=== PATIENT | female | born 1980 | race Caucasian/White ===

== ENCOUNTER 2017-01-07 16:50 | Emergency (ER) | payer SELFPAY ==
[~2017-01-07] VITALS: Ht 160 cm; Wt 68.0 kg
[~2017-01-07 16:50] MED LIST: 'PARAFON FORTE500 M1 PO; ALBUTEROL2.5 MG/0.5 INH; AMOXICILLIN500 MG PO; ANAPROX DS550 MG PO; BACTRIM DS 8001 TA1 PO; BENADRYL25 M1 PO; BLEPH-10 15 ML15 ML OP; CIPRO500 MG PO; CLARITIN-D 10 M1 T21 PO; CLINDAMYCIN HC300 MG PO; FIORICET 50-301 EACH PO; FLONASE 0.05% 121 EA NAS; HYDROCODONE BIT1 T11 PO; KEFLEX500 MG PO; LEVOFLOXACIN500 MG PO; MEDROL DOSEPAK4 MG PO; Motrin,Rufen800 MG PO; NAPROSYN500 MG PO; PENICILLIN VK500 MG PO; PERCOCET 325 MG1 TA7 PO; PREDNICOT10 MG PO; SEPTRA DS 800 M1 TAB PO; TOBRADEX 0.1%-0.5 ML OPH; TORADOL10 MG PO; TRAMADOL HCL50 MG PO; TRIMOX500 MG PO; TYLENOL500 MG PO; VICODIN 5/500 505 MG PO; VICODIN 500 MG-1 TAB PO; ZITHROMAX Z PA250 MG PO; ZOFRAN4 MG PO
[2017-01-07 17:31] LABS: BASO # 0.1 10*3/uL (0.0-0.1); BASO % 0.5 % (0.0-1.0); EOS # 0.4 10*3/uL (0.0-0.4); HEMATOCRIT 42.4 % (37.0-47.0); HEMOGLOBIN 14.3 g/dl (12.0-16.0); LYMPH # 3.2 10*3/uL (1.3-4.4); LYMPH % 32.9 % (27.0-41.0); MEAN CELL VOLUME 87.4 fl (81.0-99.0); MEAN CORPUSCULAR HGB 29.5 pg (27.0-31.0); MEAN CORPUSCULAR HGB CONC 33.7 g/dl (33.0-37.0); MEAN PLATELET VOLUME 9.6 fl (9.6-12.3); MONO # 0.6 10*3/uL (0.1-1.0); MONO % 5.7 % (3.0-9.0); NEUT # 5.4 10*3/uL (2.3-7.9); NEUT % 56.7 % (47.0-73.0); PLATELET COUNT AUTOMATED 295 10*3/uL (130-400); RED BLOOD COUNT 4.85 10*6/uL (4.10-5.10); RED CELL DISTRI WIDTH 13.1 % (0-14.5); WHITE BLOOD COUNT 9.6 10*3/uL (4.8-10.8)
[2017-01-07 17:48] LABS: ALBUMIN 3.3 gm/dl (3.1-4.5); ALKALINE PHOSPHATASE 82 U/L (45-117); BUN 6 mg/dl (7-24); CHLORIDE 107 mmol/L (98-107); CREATININE 0.69 mg/dL (0.55-1.02); LIPASE 99 U/L (73-393); MAGNESIUM 2.3 mg/dL (1.5-2.1); POTASSIUM 3.4 mmol/L (3.5-5.1); SGOT/AST 14 IU/L (3-35); SGPT/ALT 14 U/L (12-78); SODIUM 140 mmol/L (136-145)
[2017-01-07 17:59] LABS: BETA-HCG, QUANT < 1.0 mIU/mL (1-3)
[2017-01-07] MEDS ORDERED: Motrin,Rufen800 MG PO (18:28)
[2017-01-07 18:29] VITALS: BP 110/60
== END 2017-01-07 18:29 | disposition home or self-care (01) ==
LOC: ED 16:50
PROVIDERS: Emergency Medicine
DX: G43.909 Migraine, unspecified, not intractable, without status migrainosus (principal); F17.200 Nicotine dependence, unspecified, uncomplicated

== ENCOUNTER 2018-02-25 17:15 | Emergency (ER) | payer SELFPAY ==
[~2018-02-25] VITALS: Ht 160 cm; Wt 70.3 kg
[2018-02-25 17:15] VITALS: BP 115/72
[2018-02-25] MEDS ORDERED: SEPTDS PO (17:55)
[2018-02-25] MEDS ORDERED: KEFLEX500 M1 PO (17:55)
== END 2018-02-25 18:15 | disposition home or self-care (01) ==
LOC: ED 17:15
DX: L02.215 Cutaneous abscess of perineum (principal); G43.909 Migraine, unspecified, not intractable, without status migrainosus; F17.200 Nicotine dependence, unspecified, uncomplicated

== ENCOUNTER 2020-04-23 20:03 | Emergency (ER) | payer OTHER ==
[~2020-04-23] VITALS: Ht 160 cm; Wt 72.6 kg
[~2020-04-23 20:03] MED LIST changes: +KEFLEX500 M1 PO; +SEPTDS PO
[2020-04-23 20:13] VITALS: BP 117/71
[2020-04-23] MEDS ORDERED: PREDNISONE20 M1 PO (21:05)
== END 2020-04-23 21:11 | disposition home or self-care (01) ==
LOC: ED 20:03
DX: S39.012A Strain of muscle, fascia and tendon of lower back, initial encounter (principal); G43.909 Migraine, unspecified, not intractable, without status migrainosus; Z79.2 Long term (current) use of antibiotics; X50.0XXA Overexertion from strenuous movement or load, initial encounter; Y93.89 Activity, other specified; Y92.89 Other specified places as the place of occurrence of the external cause; Y99.8 Other external cause status

== ENCOUNTER 2020-05-02 16:04 | Emergency (ER) | payer BC ==
[~2020-05-02] VITALS: Ht 160 cm; Wt 72.6 kg
[~2020-05-02 16:04] MED LIST changes: +PREDNISONE20 M1 PO
[2020-05-02 16:10] VITALS: BP 114/63
[2020-05-02] MEDS ORDERED: ROBAXIN-750750 MG PO (16:42)
[2020-05-02] MEDS ORDERED: PREDNISONE20 M1 PO (16:42)
== END 2020-05-02 18:05 | disposition home or self-care (01) ==
LOC: ED 16:04
DX: S33.5XXA Sprain of ligaments of lumbar spine, initial encounter (principal); G43.909 Migraine, unspecified, not intractable, without status migrainosus; F17.200 Nicotine dependence, unspecified, uncomplicated; X50.0XXA Overexertion from strenuous movement or load, initial encounter; Y93.89 Activity, other specified; Y92.89 Other specified places as the place of occurrence of the external cause; Y99.8 Other external cause status

== ENCOUNTER 2020-06-04 15:42 | Emergency (ER) | payer BC ==
[~2020-06-04] VITALS: Ht 160 cm; Wt 68.0 kg
[~2020-06-04 15:42] MED LIST changes: +ROBAXIN-750750 MG PO
[2020-06-04] MEDS ORDERED: NAPROXEN250 MG PO (16:50)
[2020-06-04] MEDS ORDERED: TYLENOL325 M1 PO (16:50)
[2020-06-04] MEDS ORDERED: SEPTDS PO (16:50)
[2020-06-04 17:05] VITALS: BP 102/59
== END 2020-06-04 17:20 | disposition home or self-care (01) ==
LOC: ED 15:42
DX: L02.31 Cutaneous abscess of buttock (principal); G43.909 Migraine, unspecified, not intractable, without status migrainosus; F17.200 Nicotine dependence, unspecified, uncomplicated; Z79.899 Other long term (current) drug therapy

== ENCOUNTER 2020-06-26 16:43 | Emergency (ER) | payer BC ==
[~2020-06-26] VITALS: Ht 160 cm; Wt 68.0 kg
[~2020-06-26 16:43] MED LIST changes: +NAPROXEN250 MG PO; +TYLENOL325 M1 PO
[2020-06-26 16:57] VITALS: BP 110/68
[2020-06-26 17:21] LABS: BASO % 0.3 % (0.0-1.0); EOS # 0.4 10*3/uL (0.0-0.4); EOS % 3.2 % (1.0-4.0); HEMATOCRIT 46.9 % (37.0-47.0); LYMPH # 3.4 10*3/uL (1.3-4.4); LYMPH % 29.4 % (27.0-41.0); MEAN CELL VOLUME 88.5 fl (81.0-99.0); MEAN CORPUSCULAR HGB 29.1 pg (27.0-31.0); MEAN CORPUSCULAR HGB CONC 32.8 g/dl (33.0-37.0); MEAN PLATELET VOLUME 9.9 fl (9.6-12.3); MONO # 0.7 10*3/uL (0.1-1.0); MONO % 5.8 % (3.0-9.0); NEUT # 7.1 10*3/uL (2.3-7.9); PLATELET COUNT AUTOMATED 302 10*3/uL (130-400); RED CELL DISTRI WIDTH 13.1 % (0-14.5); WHITE BLOOD COUNT 11.6 10*3/uL (4.8-10.8)
[2020-06-26 17:22] LABS: BILIRUBIN Negative (Negative); BLOOD 1+ (Negative); CLARITY Cloudy (Clear); COLOR Yellow (Yellow); GLUCOSE Negative (Negative); KETONE Negative (Negative); LEUKO ESTERASE 3+ (Negative); NITRITE Negative (Negative); PH 5.5 (4.5-8.0); SPECIFIC GRAVITY <= 1.005 (1.001-1.030); UROBILINOGEN 0.2 E.U./dl (0.0-1.0)
[2020-06-26 17:32] LABS: BACTERIA 3+; EPITHELIAL CELLS 31-40; WBC 16-20 wbc/hpf (0-5)
[2020-06-26 17:34] LABS: ACT PARTIAL THROMBO TIME 28.9 SECONDS (20.0-32.1)
[2020-06-26 17:41] LABS: ALBUMIN 3.4 gm/dl (3.1-4.5); ALKALINE PHOSPHATASE 79 U/L (45-117); BUN 7 mg/dl (7-24); CHLORIDE 108 mmol/L (98-107); LIPASE 83 U/L (73-393); POTASSIUM 3.7 mmol/L (3.5-5.1); SGOT/AST 12 IU/L (3-35); SGPT/ALT 16 U/L (12-78); SODIUM 139 mmol/L (136-145); TOTAL PROTEIN 7.2 gm/dL (6.4-8.2); TROPONIN I < 0.015 ng/ml (<0.045)
[2020-06-26] MEDS ORDERED: CEPHALEXIN500 M1 PO (18:57)
== END 2020-06-26 18:58 | disposition home or self-care (01) ==
LOC: ED 16:43
PROVIDERS: Nurse Practitioner Family
DX: N39.0 Urinary tract infection, site not specified (principal); F17.200 Nicotine dependence, unspecified, uncomplicated; Z79.899 Other long term (current) drug therapy

== ENCOUNTER 2020-08-02 20:24 | Emergency (ER) | payer BC ==
[~2020-08-02] VITALS: Ht 160 cm; Wt 68.0 kg
[~2020-08-02 20:24] MED LIST changes: +CEPHALEXIN500 M1 PO
[2020-08-02 20:43] VITALS: BP 116/64
[2020-08-02] MEDS ORDERED: PENICILLIN VK500 MG PO (21:02)
== END 2020-08-02 21:27 | disposition home or self-care (01) ==
LOC: ED 20:24
DX: K02.9 Dental caries, unspecified (principal); K08.89 Other specified disorders of teeth and supporting structures; Z79.899 Other long term (current) drug therapy

== ENCOUNTER 2020-08-04 18:27 | Emergency (ER) | payer BC ==
[~2020-08-04] VITALS: Ht 160 cm; Wt 68.0 kg
[2020-08-04 18:35] VITALS: BP 126/74
== END 2020-08-04 20:22 | disposition home or self-care (01) ==
LOC: ED 18:27
DX: K02.9 Dental caries, unspecified (principal); R22.0 Localized swelling, mass and lump, head; K08.89 Other specified disorders of teeth and supporting structures; G43.909 Migraine, unspecified, not intractable, without status migrainosus; Z79.899 Other long term (current) drug therapy

== ENCOUNTER 2020-09-27 19:20 | Emergency (ER) | payer BC ==
[~2020-09-27] VITALS: Ht 160 cm; Wt 72.6 kg
[2020-09-27] MEDS ORDERED: NAPROSYN500 MG PO (21:01)
== END 2020-09-27 21:15 | disposition home or self-care (01) ==
LOC: ED 19:20
DX: M25.531 Pain in right wrist (principal); M25.532 Pain in left wrist; M25.522 Pain in left elbow; Z79.899 Other long term (current) drug therapy; Z79.2 Long term (current) use of antibiotics; X50.3XXA Overexertion from repetitive movements, initial encounter; Y93.89 Activity, other specified; Y92.69 Other specified industrial and construction area as the place of occurrence of the external cause; Y99.8 Other external cause status

== ENCOUNTER 2020-11-09 16:52 | Emergency (ER) | payer BC ==
[~2020-11-09] VITALS: Ht 160 cm; Wt 72.6 kg
[2020-11-09 17:51] VITALS: BP 124/76
[2020-11-09] MEDS ORDERED: PROAIR HFA8.5 GM INH (18:48)
== END 2020-11-09 19:10 | disposition home or self-care (01) ==
LOC: ED 16:52
DX: J45.909 Unspecified asthma, uncomplicated (principal); Z76.0 Encounter for issue of repeat prescription; Z79.899 Other long term (current) drug therapy; Z79.2 Long term (current) use of antibiotics

== ENCOUNTER 2020-12-13 11:14 | Emergency (ER) | payer BC ==
[~2020-12-13] VITALS: Ht 160 cm; Wt 68.0 kg
[~2020-12-13 11:14] MED LIST changes: +PROAIR HFA8.5 GM INH
[2020-12-13 11:32] VITALS: BP 117/71
[2020-12-13] MEDS ORDERED: PREDNISONE10 MG PO (13:25)
== END 2020-12-13 13:39 | disposition home or self-care (01) ==
LOC: ED 11:14
DX: L23.9 Allergic contact dermatitis, unspecified cause (principal); Z79.899 Other long term (current) drug therapy; Z79.2 Long term (current) use of antibiotics

== ENCOUNTER 2021-02-07 18:31 | Emergency (ER) | payer BC ==
[~2021-02-07 18:31] MED LIST changes: +PREDNISONE10 MG PO
[2021-02-07 18:37] VITALS: BP 129/79
== END 2021-02-07 23:32 | disposition home or self-care (01) ==
LOC: ED 18:31
DX: G43.909 Migraine, unspecified, not intractable, without status migrainosus (principal)

== ENCOUNTER 2021-03-01 15:51 | Emergency (ER) | payer BC ==
[~2021-03-01] VITALS: Ht 160 cm; Wt 68.0 kg
[2021-03-01 15:57] VITALS: BP 132/86
[2021-03-01] MEDS ORDERED: ERYTHROMYCIN OPH1 GM OPH (19:11)
== END 2021-03-01 19:45 | disposition home or self-care (01) ==
LOC: ED 15:51
DX: H00.011 Hordeolum externum right upper eyelid (principal)

== ENCOUNTER 2021-09-28 14:01 | Emergency (ER) | payer BC ==
[~2021-09-28] VITALS: Ht 160 cm; Wt 68.0 kg
[~2021-09-28 14:01] MED LIST changes: +ERYTHROMYCIN OPH1 GM OPH
[2021-09-28 14:14] VITALS: BP 118/71
[2021-09-28] MEDS ORDERED: OFLOXACIN OTIC5 ML OPH (14:50)
== END 2021-09-28 15:00 | disposition home or self-care (01) ==
LOC: ED 14:01
DX: H60.91 Unspecified otitis externa, right ear (principal)

== ENCOUNTER 2021-10-16 13:07 | Emergency (ER) | payer BC ==
[~2021-10-16] VITALS: Ht 160 cm; Wt 68.0 kg
[~2021-10-16 13:07] MED LIST changes: +OFLOXACIN OTIC5 ML OPH
[2021-10-16 13:17] VITALS: BP 119/67
== END 2021-10-16 14:27 | disposition home or self-care (01) ==
LOC: ED 13:07
DX: G43.909 Migraine, unspecified, not intractable, without status migrainosus (principal)

== ENCOUNTER 2023-09-30 10:56 | Emergency (ER) | payer BC ==
[~2023-09-30] VITALS: Ht 160 cm; Wt 68.0 kg
[2023-09-30 11:07] VITALS: BP 113/69
[2023-09-30] MEDS ORDERED: PENICILLIN VK500 MG PO (11:11)
== END 2023-09-30 11:21 | disposition home or self-care (01) ==
LOC: ED 10:56
DX: K08.89 Other specified disorders of teeth and supporting structures (principal); G43.909 Migraine, unspecified, not intractable, without status migrainosus